=== PATIENT | female | born 1940 | race Caucasian/White ===

== ENCOUNTER 2022-04-05 14:01 | Emergency (ER) | payer MEDICARE ==
[~2022-04-05] VITALS: Ht 148.6 cm; Wt 48.0 kg
[~2022-04-05 14:01] MED LIST: NORCO1 TA1 PO; ROBITUSSIN AC10 ML PO; SIMVASTATIN10 MG PO; VENTOLIN HFA IN; ZITHROMAX250 MG PO; ZOCOR20 M1 PO
[2022-04-05 15:13] VITALS: BP 133/63
[2022-04-05 15:46] VITALS: BP 151/92
[2022-04-05 16:15] LABS: BASO% 0.2 % (0-3); HEMATOCRIT 43.6 % (37.0-47.0); HEMOGLOBIN 13.9 g/dl (12.0-16.0); IMMATURE GRANULOCYTES 0.2 % (0.0-5.0); LYMPH% 8.3 % (15-41); MEAN CELL VOLUME 89.2 fL CALC (80.0-100.0); MEAN CORPUSCULAR HGB 28.4 pG CALC (26.0-32.0); MEAN CORPUSCULAR HGB CONC 31.9 g/dL CAL (32.0-36.0); MONO% 13.2 % (2-13); NEUT# 7.64 thou/uL (2.00-7.15); NEUT% 78.1 % (42-76); RED BLOOD COUNT 4.89 mill/uL (4.20-5.60); RED CELL DISTRI WIDTH 13.5 % (11.5-15.5)
[2022-04-05 16:43] LABS: ALBUMIN 4.7 g/dL (3.2-5.0); ALKALINE PHOSPHATASE 97 u/l (38-126); ANION GAP 13 (6-22 (CALC)); BUN 15 mg/dL (8-23); BUN/CREATININE RATIO 22 (12-20 (CALC)); CARBON DIOXIDE 27 mmol/l (22-30); CHLORIDE 100 mmol/l (95-108); CREATININE 0.7 mg/dL (0.5-1.0); GFR FOR AFR.AMER. > 60 ML/MIN (>=60 (CALC)); GFR OTHER RACES > 60 ML/MIN (>=60 (CALC)); SGOT/AST 33 u/l (9-36); SODIUM 137 mmol/l (137-146); TOTAL PROTEIN 7.8 g/dL (6.3-8.2)
[2022-04-05 16:44] LABS: BILIRUBIN, TOTAL 0.8 mg/dL (0.0-1.4)
[2022-04-05] MEDS ORDERED: AMOX/K CLAV875 M1 PO (16:46)
[2022-04-05 16:50] VITALS: BP 151/92
== END 2022-04-05 17:11 | disposition home or self-care (01) ==
LOC: ED 14:01
PROVIDERS: Family Medicine
DX: S50.812A Abrasion of left forearm, initial encounter (principal); M25.512 Pain in left shoulder; F03.90 Unspecified dementia, unspecified severity, without behavioral disturbance, psychotic disturbance, mood disturbance, and anxiety; W54.8XXA Other contact with dog, initial encounter; Z20.822 Contact with and (suspected) exposure to COVID-19